=== PATIENT | male | born 1990 | race Hispanic/Latino ===

== ENCOUNTER 2024-10-26 07:31 | Emergency (ER) | payer SELFPAY ==
[~2024-10-26] VITALS: Ht 165.1 cm; Wt 81.6 kg
[2024-10-26] MEDS ORDERED: Diph, Acellular Pertussis, Tet 0.5 ML/VIAL (Tdap) SDV IM ONE (07:40)
[2024-10-26 08:00] VITALS: BP 120/82
[2024-10-26] MEDS ORDERED: CEPHALEXIN500 M1 PO (08:01)
[2024-10-26 08:06] VITALS: BP 109/81
== END 2024-10-26 08:17 | disposition home or self-care (01) | DRG 605 ==
LOC: ED 07:31
PROC: 0HQKXZZ Repair Right Lower Leg Skin, External Approach (ICD-10-PCS; principal; 2024-10-26)
DX: S81.811A Laceration without foreign body, right lower leg, initial encounter (principal); W26.0XXA Contact with knife, initial encounter; Y92.009 Unspecified place in unspecified non-institutional (private) residence as the place of occurrence of the external cause
CPT/HCPCS: 90715